=== PATIENT | male | born 1970 | race Caucasian/White ===

== ENCOUNTER 2019-05-17 23:08 | Emergency (ER) | payer OTHER ==
--- OUTSIDE RECORDS SUMMARY | 2019-05-17 23:10 | XMS REPORT ---
:1970 Author Organization eClinicalWorks Care Team Providers Name Role Phone Mic Seamanh Provider Role Unavailable Allergies, Adverse Reactions, Alerts Substance Reaction Event Type N.K.D.A. Info Not Available Non Drug Allergy Problems Problem Type Condition Code Onset Dates Condition Status Assessment Hyperlipidemia E78.5 Active Assessment Benign essential HTN I10 Active Assessment Prediabetes R73.03 Active Assessment BMI 35.0-35.9,adult Z68.35 Active Problem Hyperlipidemia E78.5 Active Problem Benign essential HTN I10 Active Problem Hyperglycemia R73.9 Active Problem BMI 35.0-35.9,adult Z68.35 Active Problem Asymptomatic hypertensive urgency I16.0 Active Problem HTN (hypertension), benign I10 Active Problem Mixed hyperlipidemia E78.2 Active Medications Medication Code System Code Instructions Start Date End Date Status Dosage Lisinopril [facility] 37616520051 10 MG Orally Once Active 1 tablet a day Lisinopril [facility] 84162080540 10 MG Orally Once Active 1 tablet a day Results No Known Results Summary Purpose eClinicalWorks Submission
[2019-05-17] MEDS ORDERED: NA CHLORIDE 0.9% 1,000 ML ONE (23:43)
[2019-05-17 23:58] LABS: Protime INR 1.01
[2019-05-18] LABS: Absolute Lymphocytes (CBC) 1.2 K/uL (0.7-4.9); Basophils % 0.4 % (0-1.3); Hematocrit 40.2 % (39.6-49.0); MPV 10.5 fL (7.6-11.3); RBC Red Blood Cell Count 4.58 M/uL (4.33-5.43)
[2019-05-18 00:13] LABS: ALT/SGPT 37 U/L (12-78); AST/SGOT 18 U/L (15-37); Albumin 3.8 g/dL (3.4-5.0); Alkaline Phosphatase 48 U/L (45-117); BUN Blood Urea Nitrogen 13 mg/dL (7-18); Bicarbonate 20 mmol/L (21-32); Bilirubin Direct 0.1 mg/dL (0-0.2); Bilirubin Total 0.3 mg/dL (0.2-1.0); Creatine Phosphokinase 117 U/L (39-308); Glucose Level 144 mg/dL (74-106); Magnesium 2.2 mg/dL (1.8-2.4); NT PRO-BNP 25 pg/mL (<125); Potassium 3.6 mmol/L (3.5-5.1); Protein, Total 7.1 g/dL (6.4-8.2); Sodium Level 138 mmol/L (136-145); Troponin (Emerg Dept Use Only) < 0.02 ng/mL (0.0-0.045)
--- NOTE | 2019-05-18 01:16 | ER ---
Nurse's Notes [facility] Name: Gurvinder Canada Jr Age: 48 yrs Sex: Male : 1970 Arrival Date: 05/17/2019 Time: 23:10 Bed 3 Private MD: Diagnosis: Syncope and collapse;Heat exhaustion, unspecified Presentation: 05/17 23:15 Presenting complaint: EMS states: Called for patient with syncopal episodes x2, Per EMS lp1 patient with HR in 30's, pale, diaphoretic, witnessed syncope; Converted to sinus rhythm en route, color WNL on arrival; + ETOH, states about 8-10 beers; Significant other states "he has been working in the heat all day". Transition of care: patient was not received from another setting of care. Onset of symptoms was May 17, 2019. Risk Assessment: Do you want to hurt yourself or someone else? Patient reports no desire to harm self or others. Initial Sepsis Screen: Does the patient meet any 2 criteria? No. Patient's initial sepsis screen is negative. Does the patient have a suspected source of infection? No. Patient's initial sepsis screen is negative. Care prior to arrival: Medication(s) given: Normal saline infusion, 1000 mL, IV initiated. 22 GA, in the left antecubital area, Glucose check: 146 Oxygen administered. via nasal cannula. 23:15 Method Of Arrival: EMS: [facility] lp1 23:15 Acuity: DANITA 2 lp1 Historical: - Allergies: 23:20 No Known Allergies; lp1 - Home Meds: 23:20 lisinopril 10 mg Oral tab 1 tab once daily [Active]; lp1 - PMHx: 23:20 Hypertension; lp1 - PSHx: 23:20 None; lp1 - Immunization history:: Adult Immunizations up to date. - Social history:: Smoking status: Patient/guardian denies using tobacco, Patient uses street drugs, marijuana. - Ebola Screening: : No symptoms or risks identified at this time. Screenin:21 Abuse screen: Denies threats or abuse. Denies injuries from another. Nutritional lp1 screening: No deficits noted. Tuberculosis screening: No symptoms or risk factors identified. Fall Risk None identified. Assessment: 23:21 General: Appears in no apparent distress. Behavior is calm, cooperative. Pain: Denies lp1 pain. Neuro: Level of Consciousness is awake, alert, obeys commands, Oriented to person, place, time, situation. Cardiovascular: Patient's skin is warm and dry. Rhythm is sinus rhythm. Respiratory: Respiratory effort is even, unlabored, Breath sounds are clear bilaterally. GI: Abdomen is non-distended. : No signs and/or symptoms were reported regarding the genitourinary system. EENT: No signs and/or symptoms were reported regarding the EENT system. Derm: Skin is intact, Skin is dry, Skin is flushed. Musculoskeletal: Circulation, motion, and sensation intact. 05/18 00:30 Reassessment: Patient appears in no apparent distress at this time. Patient and/or lp1 family updated on plan of care and expected duration. Pain level reassessed. Patient is alert, oriented x 3, equal unlabored respirations, skin warm/dry/pink. Patient talking with family and friends at bedside Patient states feeling better. Patient states symptoms have improved. 01:26 Reassessment: Patient is alert, oriented x 3, equal unlabored respirations, skin lp1 warm/dry/pink. Reassessment: Patient appears in no apparent distress at this time. Neuro: Moves all extremities. Full function Gait is steady. Vital Signs: 05/17 23:19 BP 134 / 81; Pulse 88; Resp 14; Temp 98.3(O); Pulse Ox 99% on R/A; Weight 106.59 kg; lp1 Pain 0/10; 23:45 BP 112 / 72; Pulse 76; Resp 20; Pulse Ox 97% on R/A; lp1 05/18 00:30 BP 129 / 82; Pulse 75; Resp 20; Pulse Ox 96% on R/A; Pain 0/10; lp1 01:20 BP 137 / 84; Pulse 69; Resp 20; Pulse Ox 96% on R/A; Pain 0/10; lp1 [place] Coma Score: 05/17 23:20 Eye Response: spontaneous(4). Verbal Response: oriented(5). Motor Response: obeys lp1 commands(6). Total: 15. ED Course: 23:10 Patient arrived in ED. ds1 23:15 Nila Escobedo RN is Primary Nurse. lp1 23:17 Kirill Limon MD is Attending Physician. gs 23:19 Triage completed. lp1 23:19 Arm band placed on right wrist. lp1 23:21 Patient has correct armband on for positive identification. Placed in gown. Bed in low lp1 position. Side rails up X2. monitoring analyst on. Pulse ox on. NIBP on. 23:40 XRAY Chest (1 view) In Process Unspecified. EDMS 05/18 01:14 No provider procedures requiring assistance completed. lp1 01:25 IV discontinued, No redness/swelling at site. Pressure dressing applied. lp1 Administered Medications: 05/17 23:54 Drug: NS 0.9% 1000 ml Route: IV; Rate: 1 bolus; Site: left antecubital; lp1 05/18 01:19 Follow up: IV Status: IV converted to saline lock; IV Intake: 800ml lp1 Intake: 05/17 23:30 IV: 1000ml (IV Fluid); Total: 1000ml. lp1 05/18 01:19 IV: 800ml; Total: 1800ml. lp1 01:25 IV: 800ml (IV Fluid); Total: 2600ml. lp1 01:25 Voids x2 lp1 Outcome: 01:15 Discharge ordered by . gs 01:26 Discharged to home ambulatory, with significant other. lp1 01:26 Condition: good 01:26 Discharge instructions given to patient, family, Instructed on discharge instructions, follow up and referral plans. Demonstrated understanding of instructions, follow-up care. 01:27 Patient left the ED. lp1 Signatures: Dispatcher [employer] EDOR Elodia Garcia dsNila Reese RN RN lp1 Kirill Limon MD MD Corrections: (The following items were deleted from the chart) 01:25 01:20 IV 800, (IV Fluid), Intake Total 800. lp1 lp1 01:28 05/17 23:19 BP 134 / 81; Pulse 88bpm; Resp 14bpm; Pulse Ox 99% RA; Temp 98.3F Oral; lp1 Pain 0/10; lp1
--- NOTE | 2019-05-18 01:17 | EDPHYS ---
Physician Documentation [facility] Name: Gurvinder Canada Jr Age: 48 yrs Sex: Male : 1970 Arrival Date: 05/17/2019 Time: 23:10 Bed 3 Private MD: ED Physician Kirill Limon HPI: 05/18 01:48 This 48 yrs old Male presents to ER via EMS with complaints of Syncope. gs 01:48 Onset: The symptoms/episode began/occurred acutely, just prior to arrival. Duration: gs This was a single episode, that lasted 1 minute(s). Context: Just prior to the episode the patient experienced lightheadedness. Associated injury: The patient did not suffer any apparent associated injury. Associated signs and symptoms: Pertinent negatives: abdominal pain, chest pain. Current symptoms: Currently, the patient is not experiencing any symptoms, the patient feels back to baseline. The patient has experienced similar episodes in the past, a few times. was in heat today, heat exposure. Historical: - Allergies: 05/17 23:20 No Known Allergies; lp1 - Home Meds: 23:20 lisinopril 10 mg Oral tab 1 tab once daily [Active]; lp1 - PMHx: 23:20 Hypertension; lp1 - PSHx: 23:20 None; lp1 - Immunization history:: Adult Immunizations up to date. - Social history:: Smoking status: Patient/guardian denies using tobacco, Patient uses street drugs, marijuana. - Ebola Screening: : No symptoms or risks identified at this time. ROS: 05/18 01:48 All other systems are negative. gs Exam: 01:48 Head/Face: Normocephalic, atraumatic. Eyes: Pupils equal round and reactive to light, gs extra-ocular motions intact. Lids and lashes normal. Conjunctiva and sclera are non-icteric and not injected. Cornea within normal limits. Periorbital areas with no swelling, redness, or edema. ENT: Nares patent. No nasal discharge, no septal abnormalities noted. Tympanic membranes are normal and external auditory canals are clear. Oropharynx with no redness, swelling, or masses, exudates, or evidence of obstruction, uvula midline. Mucous membranes moist. Neck: Trachea midline, no thyromegaly or masses palpated, and no cervical lymphadenopathy. Supple, full range of motion without nuchal rigidity, or vertebral point tenderness. No Meningismus. Chest/axilla: Normal chest wall appearance and motion. Nontender with no deformity. No lesions are appreciated. Cardiovascular: Regular rate and rhythm with a normal S1 and S2. No gallops, murmurs, or rubs. Normal PMI, no JVD. No pulse deficits. Respiratory: Lungs have equal breath sounds bilaterally, clear to auscultation and percussion. No rales, rhonchi or wheezes noted. No increased work of breathing, no retractions or nasal flaring. Abdomen/GI: Soft, non-tender, with normal bowel sounds. No distension or tympany. No guarding or rebound. No evidence of tenderness throughout. Back: No spinal tenderness. No costovertebral tenderness. Full range of motion. Skin: Warm, dry with normal turgor. Normal color with no rashes, no lesions, and no evidence of cellulitis. MS/ Extremity: Pulses equal, no cyanosis. Neurovascular intact. Full, normal range of motion. Neuro: Awake and alert, GCS 15, oriented to person, place, time, and situation. Cranial nerves II-XII grossly intact. Motor strength 5/5 in all extremities. Sensory grossly intact. Cerebellar exam normal. Normal gait. 01:48 ECG was reviewed by the Attending Physician. Vital Signs: 05/17 23:19 BP 134 / 81; Pulse 88; Resp 14; Temp 98.3(O); Pulse Ox 99% on R/A; Weight 106.59 kg; lp1 Pain 0/10; 23:45 BP 112 / 72; Pulse 76; Resp 20; Pulse Ox 97% on R/A; lp1 05/18 00:30 BP 129 / 82; Pulse 75; Resp 20; Pulse Ox 96% on R/A; Pain 0/10; lp1 01:20 BP 137 / 84; Pulse 69; Resp 20; Pulse Ox 96% on R/A; Pain 0/10; lp1 [place] Coma Score: 05/17 23:20 Eye Response: spontaneous(4). Verbal Response: oriented(5). Motor Response: obeys lp1 commands(6). Total: 15. MDM: 23:17 Patient medically screened. 05/18 01:48 Differential Diagnosis: cardiac arrhythmia, vasovagal episode, heat exhaustion. Data gs reviewed: vital signs, nurses notes, lab test result(s), EKG, radiologic studies. Counseling: I had a detailed discussion with the patient and/or guardian regarding: the historical points, exam findings, and any diagnostic results supporting the discharge/admit diagnosis, lab results, radiology results, the need for outpatient follow up. Response to treatment: the patient's symptoms have resolved after treatment, the patient's condition has returned to base line, patient is well hydrated. and as a result, I will discharge patient. 05/17 23:18 Order name: Basic Metabolic Panel; Complete Time: 00:14 05/17 23:18 Order name: CBC with Diff; Complete Time: 00: 05/17 23:18 Order name: LFT's; Complete Time: 00: 05/17 23:18 Order name: Magnesium; Complete Time: 00:14 05/17 23:18 Order name: NT PRO-BNP; Complete Time: 00:14 05/17 23:18 Order name: PT-INR; Complete Time: 00: 05/17 23:18 Order name: Troponin (emerg Dept Use Only); Complete Time: 00:14 05/17 23:18 Order name: XRAY Chest (1 view) 05/17 23:18 Order name: EKG; Complete Time: 23:20 05/17 23:18 Order name: Cardiac monitoring; Complete Time: 23:22 05/17 23:18 Order name: EKG - Nurse/Tech; Complete Time: 23:55 05/17 23:18 Order name: IV Saline Lock; Complete Time: 23:47 05/17 23:18 Order name: CPK; Complete Time: 00:14 05/17 23:18 Order name: Labs collected and sent; Complete Time: 23:47 05/17 23:18 Order name: O2 Per Protocol; Complete Time: 23:22 05/17 23:18 Order name: O2 Sat Monitoring; Complete Time: 23:22 gs EC:48 Rate is 87 beats/min. Rhythm is regular. [place] interval is normal. QRS interval is normal. gs QT interval is normal. T waves are Normal. No ST changes noted. Clinical impression: Normal ECG. Interpreted by me. Administered Medications: 05/17 23:54 Drug: NS 0.9% 1000 ml Route: IV; Rate: 1 bolus; Site: left antecubital; lp1 05/18 01:19 Follow up: IV Status: IV converted to saline lock; IV Intake: 800ml lp1 Disposition: 05/18/19 01:15 Discharged to Home. Impression: Syncope and collapse, Heat exhaustion, unspecified. - Condition is Stable. - Discharge Instructions: Syncope, Heat Exhaustion Information. - Medication Reconciliation Form, Thank You Letter, Antibiotic Education, Prescription Opioid Use form. - Follow up: Private Physician; When: 1 - 2 days; Reason: Re-evaluation by your physician. Signatures: Dispatcher [employer] EDNila Phillips RN RN lp1 Kirill Limon MD MD gs Corrections: (The following items were deleted from the chart) 01:27 01:15 05/18/2019 01:15 Discharged to Home. Impression: Syncope and collapse; Heat lp1 exhaustion, unspecified. Condition is Stable. Forms are Medication Reconciliation Form, Thank You Letter, Antibiotic Education, Prescription Opioid Use. Follow up: Private Physician; When: 1 - 2 days; Reason: Re-evaluation by your physician. gs
--- NOTE | 2019-05-18 08:26 | RAD REPORT ---
EXAM DESCRIPTION: RAD - Chest Single View - 05/17/2019 11:40 pm CLINICAL HISTORY: Shortness of breath, hypertension history COMPARISON: None. TECHNIQUE: AP portable chest image was obtained 2338 hours . FINDINGS: No peripheral mass or consolidation. Lung markings are accentuated by portable technique. Heart and vasculature are normal. No measurable pleural effusion and no pneumothorax. No acute bony a bnormality seen. No acute aortic findings suspected. IMPRESSION: No acute cardiopulmonary process suspected. Mild prominence of the lung markings and vasculature in the central chest not clearly outside of norm al range for portable imaging.
--- NOTE | 2019-05-18 11:36 | EKG ---
Test Date: 2019-05-17 Test Time: 23:22:44 Horticultural Worker: EDUARDO MEASUREMENT RESULTS: Intervals: Rate: 87 MN: 170 QRSD: 104 QT: 380 QTc: 457 [place]: P: 65 MN: 170 QRS: 50 T: 44 INTERPRETIVE STATEMENTS: Normal sinus rhythm Incomplete right bundle branch block Borderline ECG No previous ECG available for comparison Electronically Signed On 05-18-19 11:34:40 CDT by Dante Riley
== END 2019-05-18 01:27 | disposition home or self-care (01) ==
LOC: ER 23:08
DX: T67.5XXA Heat exhaustion, unspecified, initial encounter (principal); R55 Syncope and collapse; I10 Essential (primary) hypertension
CPT/HCPCS: 93005; 85025; 80048; 36415; 83735; 82550; 85610; 80076; 84484; 83880; 71045; J7030; 96360; 99284